=== PATIENT | female | born 1980 | race Caucasian/White ===

== ENCOUNTER 2019-01-26 12:16 | Emergency (ER) | payer MEDICAID ==
[~2019-01-26] VITALS: Ht 157.5 cm; Wt 89.0 kg
[2019-01-26 12:19] VITALS: Ht 157.5 cm; Wt 89.0 kg
[2019-01-26 15:36] VITALS: BP 124/70; PULSE 67; RESP 18
== END 2019-01-26 15:38 | disposition home or self-care (01) ==
LOC: FTE 12:16
DX: O99.011 Anemia complicating pregnancy, first trimester (principal); O20.9 Hemorrhage in early pregnancy, unspecified; R10.2 Pelvic and perineal pain; Z3A.12 12 weeks gestation of pregnancy
CPT/HCPCS: 36415; 76801; 81001; 84702; 85025; Z7502